=== PATIENT | male | born 1975 | race Hispanic/Latino ===

== ENCOUNTER → 2023-12-13 | Outpatient (CLI) | payer OTHER ==
[2023-12-13 21:36] VITALS: PULSE 96; RESP 10
[2023-12-13 22:10] VITALS: PULSE 72; RESP 10
[2023-12-13 22:42] VITALS: PULSE 86; RESP 10
[2023-12-13 22:59] VITALS: PULSE 84; RESP 12
[2023-12-13 23:33] VITALS: PULSE 88; RESP 12
[2023-12-14] VITALS (19 sets, daily range): PULSE 61–83; RESP 9–18
== END | disposition home or self-care (01) ==
LOC: SLP 20:26
PROVIDERS: ATTEND Internal Medicine Critical Care Medicine
DX: G47.33 Obstructive sleep apnea (adult) (pediatric) (principal)
CPT/HCPCS: 95810